=== PATIENT | male | born 1955 | race Caucasian/White ===

== ENCOUNTER → 2016-04-11 | Outpatient (CLI) | payer OTHER ==
--- NOTE | 2016-04-11 19:08 | CT ---
EXAMINATION TYPE: CT chest wo con DATE OF EXAM: 04/11/2016 6:16 PM COMPARISON: 06/08/2015 HISTORY: Shortness of breath and cough. CT DLP: 387.20 mGycm Automated exposure control for dose reduction was used. FINDINGS: Multiple axial sections were obtained from the thoracic inlet through the diaphragm with no contrast. The lungs are clear of infiltrate. There is no sign of a pulmonary mass. There is no pleural effusion . There are no hilar masses. There is no sign of mediastinal adenopathy. There are a few mediastinal lymph nodes that measure up to 1 cm. There is no evidence of aortic aneurysm. There is no pericardial effusion. There is a mass involving the right adrenal gland. This measures 4.5 cm and appears not si gnificantly different than last exam. The bony structures appear intact. There is spurring in the tho racic spine IMPRESSION: THERE IS A LARGE RIGHT SOLID ADRENAL MASS WITHOUT SIGNIFICANT CHANGE COMPARED TO LAST CT SCAN. THERE IS A SMALL IRREGULAR NODULAR DENSITY ADJACENT TO THE AORTIC ARCH ON THE OLD CT SCAN THAT IS NOT SEEN ON TODAY'S EXAM. NO EVIDENCE OF A PULMONARY MASS. STABLE SMALL MEDIASTINAL LYMPH NODES.
== END | disposition home or self-care (01) ==
LOC: RADCTMAIN 17:59
PROVIDERS: ATTEND Internal Medicine Pulmonary Disease
DX: R06.02 Shortness of breath (principal); R05 Cough
CPT/HCPCS: 71250

== ENCOUNTER → 2016-05-14 | Outpatient (CLI) | payer OTHER | END | disposition home or self-care (01) | LOC: LABWHC1 07:34 | PROVIDERS: ATTEND Internal Medicine Endocrinology, Diabetes & Metabolism | DX: D35.00 Benign neoplasm of unspecified adrenal gland (principal) | CPT/HCPCS: 36415; 82533 ==

== ENCOUNTER → 2017-06-24 | Outpatient (CLI) | payer OTHER ==
[2017-06-24 10:39] LABS: MCH 30.6 pg (25.0-35.0); MCHC 34.8 g/dL (31.0-37.0); MCV 88.1 fL (80.0-100.0); Mean Platelet Volume 6.7; Platelet Count 217 k/uL (150-450); RBC 5.23 m/uL (4.30-5.90); WBC 5.8 k/uL (3.8-10.6)
[2017-06-24 11:03] LABS: Potassium 4.9 mmol/L (3.5-5.1)
== END | disposition home or self-care (01) ==
LOC: LABWHC1 10:08
PROVIDERS: ATTEND Internal Medicine Cardiovascular Disease
DX: I48.1 Persistent atrial fibrillation (principal)
CPT/HCPCS: 36415; 80051; 82565; 84443; 84520; 85027

== ENCOUNTER → 2017-07-28 | Day surgery (SDC) | payer OTHER ==
[2017-07-27 09:20] VITALS: BMI 31.4
[~2017-07-28] MED LIST: BENZOCAINE SPRAY 1 CAN MUCOUS MEM ONE; LACTATED RINGERS 1,000 ML IV SCH; SODIUM CHLORIDE 0.9% 1,000 ML IV SCH
[2017-07-28 10:06] VITALS: TEMP 98.3
[2017-07-28 10:18] LABS: Anion Gap 15 mmol/L; Blood Urea Nitrogen 20 mg/dL (9-20); Calcium 9.3 mg/dL (8.4-10.2); Carbon Dioxide 25 mmol/L (22-30); Chloride 105 mmol/L (98-107); Glucose 99 mg/dL (74-99); Sodium 145 mmol/L (137-145)
[2017-07-28 10:51] LABS: Potassium 5.2 mmol/L (3.5-5.1)
[2017-07-28 11:08] VITALS: RESP 16
--- NOTE | 2017-07-28 11:27 | ECHOT ---
TRANSESOPHAGEAL ECHOCARDIOGRAM INDICATION: Chronic atrial fibrillation. PROCEDURE: SEBASTIAN After obtaining informed consent, transesophageal echocardiogram was performed in left lateral position using an Omni-plane probe. Local and IV sedation were obtained by the checkroom chief. Patient tolerated the procedure well without any obvious immediate complications. FINDINGS: 1. There is no intracardiac thrombus within the left atrial appendage, left atrium, right atrium, right ventricular or left ventricle. 2. Left ventricle has normal size and systolic function. 3. Mitral valve appears anatomically normal. There is mild mitral regurgitation. 4. Aortic valve is anatomically normal. There is mild aortic regurgitation. 5. There is mild tricuspid regurgitation. 6. There is no evidence of left to right shunt by color-flow Doppler or [id number] shunt by agitated saline contrast study. CONCLUSION: 1. No intracardiac thrombus. 2. Normal left ventricular function. 3. Mild mitral, aortic and tricuspid regurgitation noted. CARDIOVERSION NOTE: Indication chronic atrial fibrillation. After obtaining informed consent, patient was anesthetized by the checkroom chief. Patient underwent cardioversion using 300 joules of synchronized DC current He converted to sinus rhythm following a single shock. He is adequately anticoagulated with Pradaxa. MMODL / IJN: [id number] /
[2017-07-28 12:35] VITALS: BP 125/82; PULSE 75
== END ==
LOC: CATHCVL 09:15
PROVIDERS: ATTEND Internal Medicine Cardiovascular Disease
DX: I48.2 Chronic atrial fibrillation (principal); I08.3 Combined rheumatic disorders of mitral, aortic and tricuspid valves; E78.5 Hyperlipidemia, unspecified; I10 Essential (primary) hypertension; J45.909 Unspecified asthma, uncomplicated; G47.33 Obstructive sleep apnea (adult) (pediatric); Z82.49 Family history of ischemic heart disease and other diseases of the circulatory system; Z79.82 Long term (current) use of aspirin; Z79.51 Long term (current) use of inhaled steroids; Z79.899 Other long term (current) drug therapy
CPT/HCPCS: 80048; 92960; 93312; 93320; 93325

== ENCOUNTER → 2017-09-20 | Outpatient (CLI) | payer OTHER ==
[2017-09-20 17:31] LABS: HCT 44.4 % (39.0-53.0); HGB 15.3 gm/dL (13.0-17.5); MCH 31.6 pg (25.0-35.0); MCHC 34.4 g/dL (31.0-37.0); MCV 91.8 fL (80.0-100.0); Mean Platelet Volume 6.2; Platelet Count 236 k/uL (150-450); RBC 4.84 m/uL (4.30-5.90); RDW 13.4 % (11.5-15.5); WBC 7.3 k/uL (3.8-10.6)
[2017-09-20 18:04] LABS: Anion Gap 8 mmol/L; Blood Urea Nitrogen 18 mg/dL (9-20); Carbon Dioxide 31 mmol/L (22-30); Chloride 103 mmol/L (98-107); Potassium 4.7 mmol/L (3.5-5.1); Sodium 142 mmol/L (137-145)
== END | disposition home or self-care (01) ==
LOC: LABPAT 16:58
PROVIDERS: ATTEND Internal Medicine Cardiovascular Disease
DX: Z01.812 Encounter for preprocedural laboratory examination (principal); I48.2 Chronic atrial fibrillation
CPT/HCPCS: 80051; 82565; 84520; 85027

== ENCOUNTER 2017-09-27 11:03 | Observation (INO) | payer OTHER ==
[2017-09-27] MEDS: PROPAFENONE 150 MG TAB PO SCH ×2 (16:59→21:04)
[2017-09-27 20:06] VITALS: RESP 16
[2017-09-27] MEDS ORDERED: ACETAMINOPHEN TAB 325 MG TAB PO PRN (20:53)
[2017-09-27] MEDS: DABIGATRAN ETEXILATE MESYLATE 150 MG PO SCH (21:03)
[2017-09-28 07:50] VITALS: BP 138/88; PULSE 62; TEMP 98.3
[2017-09-28] MEDS: PROPAFENONE 150 MG TAB PO SCH (08:27)
[2017-09-28] MEDS: DABIGATRAN ETEXILATE MESYLATE 150 MG PO SCH (08:27)
--- NOTE | 2017-09-28 09:41 | DS ---
DISCHARGE SUMMARY DATE OF ADMISSION: 09/27/2017 DATE OF DISCHARGE: 09/28/2017 FINAL DIAGNOSIS: Chronic atrial fibrillation. This is a 62-year-old gentleman with history of recurrent episodes of atrial fibrillation, who was brought in electively to start on Rythmol and cardiovert him. Last time I saw him in the office, he was in atrial fibrillation and then 24-hour Holter revealed atrial fibrillation with rapid ventricular rate. Patient at the time of admission yesterday already converted back to sinus rhythm and I admitted him to start him on Rythmol and see how he would tolerate it. Baseline EKG prior to starting the medication showed sinus rhythm with a QRS duration of 90 milliseconds and a QT corrected of 414 with normal FL intervals. EKG this morning also shows sinus rhythm. The QRS duration is 94 milliseconds and a corrected QT is 412. We are going to follow the EKG and adjust the dose as needed. CONDITION AT THE TIME OF DISCHARGE: Patient is comfortable at rest, free of symptoms. Vital signs are stable. Chest exam reveals good air entry bilaterally. Heart exam reveals first and second heart sounds. No gallop. Abdomen is soft. Exam of extremities did not reveal any edema. Peripheral pulses are felt. DISCHARGE MEDICATIONS: Patient will be discharged home on: 1. Rythmol 150 t.i.d. 2. Pradaxa 150 b.i.d. 3. Xolair that he was on. 4. Centrum Silver. FOLLOWUP: He will be followed up in my office in a week's time. GREGG / VALENTINA: [id number] /
[2017-09-28] MEDS ORDERED: MULTIVITAMINS, THERA 1 EACH TAB PO SCH (12:00)
== END 2017-09-28 09:20 | disposition home or self-care (01) ==
LOC: 3OBS 11:03
PROVIDERS: ADMIT Internal Medicine Cardiovascular Disease; ATTEND Internal Medicine Cardiovascular Disease
DX: I48.2 Chronic atrial fibrillation (principal); Z79.899 Other long term (current) drug therapy; E78.5 Hyperlipidemia, unspecified; I10 Essential (primary) hypertension; Z82.49 Family history of ischemic heart disease and other diseases of the circulatory system; Z79.82 Long term (current) use of aspirin; Z79.51 Long term (current) use of inhaled steroids
CPT/HCPCS: G0378 ×2; G0379

== ENCOUNTER → 2017-10-28 | Outpatient (CLI) | payer OTHER ==
[2017-10-28 10:56] LABS: HCT 47.9 % (39.0-53.0); HGB 15.8 gm/dL (13.0-17.5); MCH 30.2 pg (25.0-35.0); MCV 91.4 fL (80.0-100.0); Mean Platelet Volume 6.5; Platelet Count 232 k/uL (150-450); RBC 5.25 m/uL (4.30-5.90); RDW 12.9 % (11.5-15.5)
[2017-10-28 11:13] LABS: Anion Gap 9 mmol/L; Blood Urea Nitrogen 20 mg/dL (9-20); Carbon Dioxide 31 mmol/L (22-30); Chloride 104 mmol/L (98-107); Glucose 99 mg/dL (74-99); Potassium 4.8 mmol/L (3.5-5.1); Sodium 144 mmol/L (137-145)
== END | disposition home or self-care (01) ==
LOC: LABPAT 10:14
PROVIDERS: ATTEND Internal Medicine Clinical Cardiac Electrophysiology
DX: Z01.812 Encounter for preprocedural laboratory examination (principal); I48.0 Paroxysmal atrial fibrillation
CPT/HCPCS: 36415; 80051; 82565; 82947; 84520; 85027

== ENCOUNTER 2017-11-27 09:46 | Day surgery (SDC) | payer OTHER ==
[2017-11-21 12:23] VITALS: BMI 32.7
[~2017-11-27 09:46] MED LIST changes: -BENZOCAINE SPRAY 1 CAN MUCOUS MEM ONE; +DEXAMETHASONE SOD PHOSPHATE 10 MG/ML 1 ML VIAL IV ONE; -LACTATED RINGERS 1,000 ML IV SCH; +LIDOCAINE 1% 20 ML VIAL (10MG/ML) FOR IV START INTRADERMA PRN; +MIDAZOLAM 2 MG/2 ML VIAL IV PRN; +ONDANSETRON 4 MG/2 ML VIAL IVP ONE; +fentaNYL (PF) 50 MCG/ML 2 ML AMP IV PRN
[2017-11-27] MEDS ORDERED: MIDAZOLAM 2 MG/2 ML VIAL ONE (14:30)
[2017-11-27] MEDS ORDERED: PHENYLEPHRINE-0.9% NACL SYG 1 MG/10 ML SYRINGE ONE (14:30)
[2017-11-27] MEDS ORDERED: HEPARIN SODIUM,PORCINE 10,000 UNIT/ML 1 ML VIAL ONE (14:30)
[2017-11-27] MEDS ORDERED: PROTAMINE SULFATE 10 MG/ML 5 ML VIAL IV ONE (14:30)
[2017-11-27] MEDS ORDERED: fentaNYL (PF) 50 MCG/ML 2 ML AMP ONE (14:30)
[2017-11-27] MEDS ORDERED: SUCCINYLCHOLINE CHLORIDE 100 MG/5 ML SYR IV ONE (14:30)
[2017-11-27] MEDS ORDERED: PROPOFOL 10 MG/ML 20 ML VIAL IV ONE (14:30)
[2017-11-27] MEDS ORDERED: IV FLUID CONTINUATION 900 ML IV ONE (14:35)
[2017-11-27] MEDS ORDERED: LIDOCAINE 1% INJ 10MG/ML (20 ML MDV) SQ ONE (15:18)
[2017-11-27] MEDS ORDERED: HEPARIN SOD,PORK IN 0.45% NACL 25,000 UNIT in 0.45% NACL 1 500ML.BAG IV ONE (15:40)
[2017-11-27] MEDS ORDERED: LACTATED RINGERS 1,000 ML IV ONE (16:46)
[2017-11-27] MEDS ORDERED: ACETAMINOPHEN TAB 325 MG TAB PO PRN (17:42)
[2017-11-27] MEDS ORDERED: HYDROcodone/APAP 5-325MG 1 EACH TAB PO PRN (17:42)
[2017-11-27] MEDS ORDERED: IOPAMIDOL-250 100ML BTL IV ONE (17:49)
--- NOTE | 2017-11-27 18:01 | P.PCN ---
Preoperative Diagnosis: Diagnosis Atrial fibrillation, symptomatic, refractory to therapy, paroxysmal Result Successful pulmonary vein isolation of all veins using cryo-ablation Complete entrance block in all 4 veins confirmed No evidence for phrenic nerve injury Esophageal deflection YES Electrical cardioversion with a synchronized shock across the chest NO Procedure details Patient was brought to the EP lab in a fasting state. Written informed consent was obtained prior to the procedure. Procedure performed under general anesthesia After initial muscle relaxant use, muscle relaxants were not given thereafter in order to assess phrenic nerve during procedure Patient prepped and draped as per protocol Full cryo-set up with standard preparation of the cryoablation tools done Femoral Venous access obtained on the right and left groins Venous and arterial Sheaths placed Diagnostic catheters for the high right atrium, phrenic nerve stimulation and pacing, His bundle, RV and coronary sinus placed Intracardiac echo catheter placed Long sheath placed in the right atrium Left and right transseptal catheterization performed under intracardiac echo guidance Intravenous heparin with aCT above 300 Later, catheter positioning and balloon positioning in the left atrium, under intracardiac echo guidance Comprehensive diagnostic EP study Drug infusion Coronary sinus pacing and recording Baseline measurements Sinus cycle length 753 ms, OR interval 149 ms, QRS 81 ms, QT 358 ms. AH interval 80 ms and HV interval 61 ms Atrial pacing performed from the high right atrium and the coronary sinus RV pacing Sinus recovery times at a pacing cycle length of 600 ms is 1096 Transseptal catheterization performed RA pressure 18/6/13 LA pressure 21/10/15 Transseptal catheterization performed with standard sheath. The cryoablation sheath was then placed with an over the wire exchange without any acute complications. Atrial fibrillation was induced when the left atrium was accessed. This also converted to sinus rhythm once the cath is removed from the left atrium All 4 pulmonary veins were isolated in the following sequence: Left superior followed by left inferior followed by right superior followed by right inferior The cryo-ablation balloon was placed at the os of each vein 1.5 mL of IV dye was injected to confirm an occluded vein Goal during cryoablation was to achieve complete occlusion of the pulmonary vein , achieve -30C at 30 seconds and achieve -40C at 60 seconds and a time to affect of less than 60-90 seconds, . If not the balloon was repositioned to obtain this result After completion of Cryoblation with durations from 180-240 seconds, entrance block was confirmed with the Attain circular catheter in a roving fashion around the antrum of the pulmonary veins Phrenic nerve pacing was performed from the SVC, right innominate vein area and diaphragm voltage was monitored. Diaphragmatic contractions were also monitored manually for strength of contraction. Parameter goals for each cryo freeze -30C by 30 seconds -40C by 60 seconds Mediated between minus 40-55C Thaw time greater than 10 seconds Balloon visualized by intracardiac echo to ensure that the proximal one third was within the left atrium/antrum The esophagus was intubated. Esophageal Temperature monitoring with a CIRCA catheter formed. Esophageal deflection for hypothermia of the esophagus below 32C Left superior pulmonary vein Complete isolation with cryoablation, entrance block Left inferior pulmonary vein Complete isolation of Cryoblation, complete block, required esophageal deflection Right superior pulmonary vein, during phrenic nerve pacing Complete isolation, entrance block Right inferior pulmonary vein, during phrenic nerve pacing Complete isolation, entrance block At the end of the procedure the Achieve catheter was once again used to check for entrance block Phrenic nerve stimulation was performed to confirm diaphragmatic stimulation the end of the procedure Cine fluoroscopy was performed at the very end of the procedure to confirm movement of both diaphragms with inspiration and expiration At the end of the procedure the patient was extubated Heparin was reversed Venous sheaths were removed and hemostasis assured Procedures performed (PVI - CRYO Ablation) Invasive hemodynamic monitoring while general anesthesia, right femoral arterial line for monitoring and sampling Comprehensive diagnostic EP study CS pacing and recording Left and right transseptal catheterization Catheter the mapping of the tachycardia (NOT 3D mapping) Intracardiac echocardiography Pulmonary vein isolation with transseptal and comprehensive EPS, [id number]
[2017-11-27] MEDS ORDERED: ACETAMINOPHEN IV (For NPO) 1,000 MG in EMPTY BAG 1 BAG IVPB ONE (18:30)
[2017-11-27] MEDS: LACTATED RINGERS 1,000 ML IV SCH (18:58)
[2017-11-27] MEDS: DABIGATRAN 150 MG CAP PO SCH (21:30)
[2017-11-27] MEDS: FLECAINIDE 50 MG TAB PO SCH (22:00)
[2017-11-27] MEDS: VERAPAMIL 40 MG TAB PO SCH (22:00)
[2017-11-28 07:13] VITALS: RESP 16
[2017-11-28] MEDS: DABIGATRAN 150 MG CAP PO SCH (08:29)
[2017-11-28] MEDS: FLECAINIDE 50 MG TAB PO SCH (08:30)
[2017-11-28] MEDS: VERAPAMIL 40 MG TAB PO SCH (08:30)
--- NOTE | 2017-11-28 08:43 | P.DS ---
Providers Attending physician: Yoshi Pritchard Primary care physician: [facility] Course: Patient is doing well. He has been ablating in the hallways. Currently sitting in bed. No chest discomfort no pleuritic chest discomfort no shortness throat no dizziness lightheadedness On examination afebrile 98.7F, pulse rate in the 70s, blood pressure 122/70 mmHg Head and neck examination is normal Heart sounds S1 and S2 are normal and regular Breath sounds are clear no rhonchi no crackles Abdomen soft nontender Patient is warm no edema groins and healed well puncture sites have healed well The groin suture was removed Impression Paroxysmal atrial fibrillation status post cryoablation with complete isolation of all 4 veins Plan Ambulate in the hallways and discharge home later today at about 4 PM if hemodynamically stable and groins of healed well Follow-up with Dr. Read in 1 week Patient Condition at Discharge: Stable Plan - Discharge Summary Discharge Rx Participant: No New Discharge Prescriptions: Continue Omalizumab [Xolair] 150 mg SQ Q30D Multivit-Min/FA/Lycopen/Lutein [Centrum Silver Tablet] 1 tab PO DAILY Flecainide [Tambocor] 50 mg PO Q12HR Verapamil [Isoptin] 40 mg PO BID Allergy Injections 1 dose INJ Q30D Dabigatran [Pradaxa] 150 mg PO BID Discharge Medication List Multivit-Min/FA/Lycopen/Lutein [Centrum Silver Tablet] 1 tab PO DAILY 09/27/17 [ History] Omalizumab [Xolair] 150 mg SQ Q30D 09/27/17 [History] Flecainide [Tambocor] 50 mg PO Q12HR 10/31/17 [History] Verapamil [Isoptin] 40 mg PO BID 10/31/17 [History] Allergy Injections 1 dose INJ Q30D 11/21/17 [History] Dabigatran [Pradaxa] 150 mg PO BID 11/27/17 [History] Follow up Appointment(s)/Referral(s): Yoshi Pritchard MD [STAFF PHYSICIAN] - 2 Weeks Activity/Diet/Wound Care/Special Instructions: Post EP study - Ablation instructions 1. Keep access sites dry for 2 days. 2. No heavy lifting or straining for 2 days. 3. Avoid bending the hips repeatedly for 2 days. 4. You may go up and down stairs slowly Call if the following is noted 1. Bleeding, increasing swelling or pain at the access sites. 2. Increasing chest discomfort, especially upon taking a deep breath. 3. Increasing shortness of breath, at rest or with exertion. 4. Undue cough / phlegm 5. Difficulty or pain while swallowing. 6. Pain or change in color in the extremities. 7. Fever, chills, rigors. 8. Increasing headache or neurologic symptoms. 9. Dizziness, fainting, palpitations Follow-up with Dr. Sanchez/Michelle Vieira NP in 2 weeks
[2017-11-28 11:32] VITALS: BP 138/85; PULSE 72; TEMP 99
== END 2017-11-28 15:58 | disposition home or self-care (01) ==
LOC: CATHEP 09:46 → 3OBS 17:23 → CATHEP 11-28 15:58
PROVIDERS: ATTEND Internal Medicine Clinical Cardiac Electrophysiology
DX: I48.0 Paroxysmal atrial fibrillation (principal); Z79.02 Long term (current) use of antithrombotics/antiplatelets; Z79.51 Long term (current) use of inhaled steroids; Z79.899 Other long term (current) drug therapy
CPT/HCPCS: 93662; 93609; 93656; C1769 ×4; C1894 ×3; C1730 ×3; C1759; C1893; C1733; C1766; J2001; J1644; J0131; Q9966

== ENCOUNTER → 2019-01-04 | Outpatient (CLI) | payer OTHER ==
--- NOTE | 2019-01-04 16:30 | CT ---
EXAMINATION TYPE: CT chest wo con DATE OF EXAM: 01/04/2019 COMPARISON: 04/11/2016 HISTORY: Lung nodule, asthma, sleep apnea. CT DLP: [address] of the chest was performed with lung and mediastinal window settings submitted. The la ck of contrast limits evaluation of the vascular, mediastinal and parenchymal structures including th e upper abdomen. LUNGS: The lungs are clear and free of infiltrate. No atelectasis. No pulmonary nodule or mass is de tected. No pleural effusion. No CT evidence of interstitial lung disease. MEDIASTINUM/SERGIO: Thoracic aorta is of normal caliber with limited evaluation given lack of contrast . The heart is not enlarged. No evidence for mediastinal mass. No lymph nodes greater than 1cm. UPPER ABDOMEN: Solid mass right adrenal gland is stable and measures 4.5 cm versus 4.5 cm previously. OTHER: No significant other abnormality. IMPRESSION: 1. No distinct pulmonary nodule. 2. Stable and nonspecific right adrenal mass.
== END ==
LOC: RADCTMAIN 15:58
PROVIDERS: ATTEND Internal Medicine Pulmonary Disease
DX: R91.1 Solitary pulmonary nodule (principal); G47.33 Obstructive sleep apnea (adult) (pediatric); E27.9 Disorder of adrenal gland, unspecified; I48.91 Unspecified atrial fibrillation
CPT/HCPCS: 71250